=== PATIENT | female | born 1960 | race Asian ===

== ENCOUNTER 2017-12-11 09:40 | Emergency (ER) | payer MEDICAID, OTHER ==
[~2017-12-11] VITALS: Ht 162.6 cm; Wt 79.1 kg
[2017-12-11] MEDS ORDERED: PROPARACAINE/FLUORESCEIN SOD 0.5-0.25% 0.5 ML OPHTHALMIC SOLUTION OS ONE (11:00)
[2017-12-11 11:47] VITALS: BP 140/93
== END 2017-12-11 11:53 | disposition home or self-care (01) ==
LOC: EMS 09:41
DX: H57.12 Ocular pain, left eye (principal)
CPT/HCPCS: 99282; Z7610

== ENCOUNTER 2018-02-21 23:25 | Emergency (ER) | payer OTHER ==
[~2018-02-21] VITALS: Ht 162.6 cm; Wt 77.3 kg
[2018-02-21] MEDS ORDERED: 0.9% SODIUM CHLORIDE 5 ML NEB SOLUTION NEB ONE (23:55)
[2018-02-22] MEDS ORDERED: ALBUTEROL SULFATE 2.5 MG/0.5 ML NEB SOLUTION NEB ONE
[2018-02-22] MEDS ORDERED: IPRATROPIUM BROMIDE 0.5 MG/2.5 ML NEB SOLUTION NEB ONE
[2018-02-22 02:11] VITALS: BP 141/67
[2018-02-22] MEDS ORDERED: PredniSONE 20 MG TABLET PO ONE (03:00)
[2018-02-22] MEDS ORDERED: ACETAMINOPHEN 500 MG TABLET PO ONE (03:00)
[2018-02-22] MEDS ORDERED: ALBUTEROL SULFATE HFA 90 MCG/PUFF 8 GM INHALER IH ONE (03:00)
[2018-02-22] MEDS ORDERED: GuaiFENesin/D-METHORPHAN [SUGAR-FREE] 200-20MG/10 ML SYRUP UDCUP PO ONE (03:00)
== END 2018-02-22 03:23 | disposition home or self-care (01) ==
LOC: EMS 23:26
DX: J40 Bronchitis, not specified as acute or chronic (principal); J02.9 Acute pharyngitis, unspecified
CPT/HCPCS: 71045; 94640; 99284; J7512; J7613; J3535

== ENCOUNTER 2019-08-19 16:48 | Emergency (ER) | payer OTHER ==
[~2019-08-19] VITALS: Ht 162.6 cm; Wt 77.3 kg
[2019-08-19] MEDS ORDERED: KETOROLAC TROMETHAMINE 60 MG/2 ML VIAL IM ONE (18:30)
[2019-08-19 20:57] VITALS: BP 160/99
== END 2019-08-19 21:07 | disposition home or self-care (01) ==
LOC: EMS 16:49
DX: G50.0 Trigeminal neuralgia (principal); Z98.890 Other specified postprocedural states
CPT/HCPCS: 70450; 96372; 99284; J1885

== ENCOUNTER 2022-04-04 19:20 | Emergency (ER) | payer OTHER ==
[~2022-04-04] VITALS: Ht 162.6 cm; Wt 56.8 kg
[2022-04-04 19:39] VITALS: BP 130/79
[2022-04-04] MEDS ORDERED: METF-1211 PO (19:55)
[2022-04-04] MEDS ORDERED: ATOR20TA86 PO (19:55)
[2022-04-04] MEDS ORDERED: CARB200T6 PO (19:55)
[2022-04-04 19:56] LABS: GLUCOMETER DEV NAME(LOC) ERT.5; GLUCOSE,POINT OF CARE 117 MG/DL (70-110)
[2022-04-04 19:57] LABS: APPEARANCE,URINE HAZY (CLEAR); BILIRUBIN,URINE NEGATIVE (NEGATIVE); GLUCOSE, URINE (UA) NEGATIVE (NEGATIVE); KETONES,URINE NEGATIVE (NEGATIVE); LEUKOCYTE ESTERASE ,URINE LARGE (NEGATIVE); NITRATE,URINE NEGATIVE (NEGATIVE); OCCULT BLOOD,URINE LARGE (NEGATIVE); PH,URINE 6.5 (5.0-8.0); PROTEIN,URINE 30-70 mg/dL (NEGATIVE); SPECIFIC GRAVITIY, URINE 1.005 (1.003-1.030); UROBILINOGEN,URINE <=1.0 mg/dL (<=1.0)
[2022-04-04 20:11] LABS: BACTERIA,URINE Moderate /HPF (None Seen); RBC,URINE 26-50 /HPF (0-2); WBC,URINE >100 /HPF (0-5)
[2022-04-04 20:12] LABS: SQUAMOUS EPITHELIAL CELL,UR Rare /LPF (None Seen)
[2022-04-04] MEDS ORDERED: CEPH-558 PO (21:04)
[2022-04-04] MEDS ORDERED: PHEN-674 PO (21:04)
== END 2022-04-04 21:11 | disposition home or self-care (01) ==
LOC: EMS 19:20
DX: N39.0 Urinary tract infection, site not specified (principal); E11.9 Type 2 diabetes mellitus without complications; E78.00 Pure hypercholesterolemia, unspecified; I10 Essential (primary) hypertension; Z87.440 Personal history of urinary (tract) infections; Z98.890 Other specified postprocedural states; Z86.39 Personal history of other endocrine, nutritional and metabolic disease
CPT/HCPCS: 81001; 82962; 87086; 99283

== ENCOUNTER 2022-08-30 09:19 | Emergency (ER) | payer OTHER ==
[~2022-08-30] VITALS: Ht 162.6 cm; Wt 59.1 kg
[~2022-08-30 09:19] MED LIST: ATOR20TA86 PO; CARB200T6 PO; CEPH-558 PO; METF-1211 PO; PHEN-674 PO
[2022-08-30 12:05] VITALS: BP 144/88
[2022-08-30] MEDS ORDERED: LIDO700A15 TP (12:25)
[2022-08-30] MEDS ORDERED: ACYC-138 PO (12:25)
== END 2022-08-30 12:41 | disposition home or self-care (01) ==
LOC: EMS 09:27
DX: B02.9 Zoster without complications (principal); E11.9 Type 2 diabetes mellitus without complications; E78.00 Pure hypercholesterolemia, unspecified; I10 Essential (primary) hypertension; Z87.440 Personal history of urinary (tract) infections
CPT/HCPCS: 82962; 99283

== ENCOUNTER 2023-02-25 03:28 | Inpatient (IN) | payer OTHER ==
[~2023-02-25] VITALS: Ht 172.7 cm; Wt 61.2 kg
[~2023-02-25 03:28] MED LIST changes: +ACYC-138 PO; +ATOR20TA PO; -ATOR20TA86 PO; +CARB-92 PO; -CARB200T6 PO; -CEPH-558 PO; +LIDO700A15 TP; -PHEN-674 PO
[2023-02-25 04:30] LABS: BASOPHILS % (AUTO) 0.3 % (0.0-2.0); EOSINOPHILS % (AUTO) 0.9 % (1.0-6.0); HEMOGLOBIN 12.3 g/dL (12.0-16.0); LYMPHOCYTES # (AUTO) 1.6 K/uL (1.0-4.8); LYMPHOCYTES % (AUTO) 20.7 % (22.0-44.0); MEAN CORPUSCULAR HEMOGLOBIN 30.5 pg (26.0-34.0); MEAN CORPUSCULAR HGB CONC 34.1 G/dL (31.0-37.0); MEAN CORPUSCULAR VOLUME 90 fL (80-100); MONOCYTES # (AUTO) 0.6 K/uL (0.1-1.0); MONOCYTES % (AUTO) 7.4 % (2.0-9.0); NEUTROPHILS # (AUTO) 5.6 K/uL (1.8-7.7); NEUTROPHILS % (AUTO) 70.7 % (40.0-70.0); PLATELET COUNT (AUTO) 291 K/uL (150-450); RED BLOOD CELL COUNT(AUTO) 4.02 MIL/uL (4.00-5.20); RED CELL DISTRIBUTION WIDTH 13.3 % (11.5-14.5)
[2023-02-25 04:40] LABS: ANION GAP 13 mmol/L (8-16); CARBON DIOXIDE 28 mmol/L (22-29); CHLORIDE 93 mmol/L (98-107); CREATININE 0.72 mg/dL (0.60-1.30); GLOMERULAR FILTR. RATE CALC > 60 mL/min (>60); GLUCOSE,RANDOM 119 mg/dL (70-110); POTASSIUM 3.4 mmol/L (3.5-5.1); SODIUM SERUM 134 mmol/L (136-145)
[2023-02-25] MEDS ORDERED: SODIUM CHLORIDE 0.9% 1,000 ML IV ONE (04:45)
[2023-02-25 04:51] LABS: ALANINE AMINOTRANSFERASE 12 U/L (12-78); ALBUMIN 3.5 g/dL (3.4-5.0); ALKALINE PHOSPHATASE 85 U/L (46-116); ASPARTATE AMINOTRANSFERASE 15 U/L (15-37); BILIRUBIN,TOTAL 0.3 mg/dL (0.1-1.0); CREATINE KINASE, TOTAL ONLY 34 U/L (26-192); TOTAL PROTEIN, SERUM 7.2 g/dL (6.4-8.2)
[2023-02-25 06:23] LABS: APPEARANCE,URINE HAZY (CLEAR); BILIRUBIN,URINE NEGATIVE (NEGATIVE); GLUCOSE, URINE (UA) NEGATIVE (NEGATIVE); LEUKOCYTE ESTERASE ,URINE TRACE (NEGATIVE); NITRATE,URINE NEGATIVE (NEGATIVE); OCCULT BLOOD,URINE LARGE (NEGATIVE); PH,URINE 7.5 (5.0-8.0); PROTEIN,URINE TRACE mg/dL (NEGATIVE); SPECIFIC GRAVITIY, URINE 1.006 (1.003-1.030); UROBILINOGEN,URINE <=1.0 mg/dL (<=1.0)
[2023-02-25 06:46] LABS: RBC,URINE >100 /HPF (0-2)
[2023-02-25 06:47] LABS: BACTERIA,URINE None Seen /HPF (None Seen); WBC,URINE None Seen /HPF (0-5)
[2023-02-25] MEDS ORDERED: IOHEXOL 350 MG/ML 100 ML VIAL ONE (07:26)
[2023-02-25] MEDS ORDERED: SODIUM CHLORIDE 0.9% 100 ML ONE (07:26)
[2023-02-25] MEDS ORDERED: GADOTERATE MEGLUMINE 10 MMOL/20 ML VIAL IVP ONE (11:06)
[2023-02-25 14:27] VITALS: BP 119/75; PULSE 74; RESP 16; TEMP 98.6
[2023-02-25 20:16] VITALS: BP 120/72; PULSE 63; RESP 16; TEMP 99
[2023-02-25] MEDS ORDERED: IPRATROPIUM BROMIDE 0.5 MG/2.5 ML NEB SOLUTION NEB PRN (22:15)
[2023-02-25] MEDS ORDERED: ONDANSETRON HCL 4 MG/2 ML VIAL IVP PRN (22:15)
[2023-02-25] MEDS ORDERED: BISACODYL 10 MG RECTAL RECTAL SUPPOSITORY PR PRN (22:15)
[2023-02-25] MEDS ORDERED: MAGNESIUM HYDROXIDE SUSPENSION 30 ML UDCUP PO PRN (22:15)
[2023-02-25] MEDS ORDERED: MORPHINE SULFATE 2 MG/ML SYRINGE IVP PRN (22:15)
[2023-02-25] MEDS ORDERED: ACETAMINOPHEN 325 MG TABLET PO PRN (22:15)
[2023-02-25] MEDS ORDERED: HYDROCODONE/ACETAMINOPHEN 5-325 MG TABLET PO PRN (22:15)
[2023-02-25] MEDS ORDERED: ZOLPIDEM TARTRATE 5 MG TABLET PO PRN (22:15)
[2023-02-25] MEDS ORDERED: ALBUTEROL SULFATE 2.5 MG/0.5 ML NEB SOLUTION NEB PRN (22:15)
[2023-02-25 22:53] LABS: THYROID STIMULATING HORMONE 5.35 uIU/mL (0.36-3.74)
[2023-02-25] MEDS: HEPARIN SODIUM,PORCINE 5,000 UNITS/ML VIAL SQ SCH (23:32)
[2023-02-26 00:20] VITALS: BP 138/75; PULSE 66; RESP 16; TEMP 97.9
[2023-02-26 05:25] VITALS: BP 102/68; PULSE 73; RESP 16; TEMP 98.2
[2023-02-26 07:48] VITALS: BP 99/65; PULSE 66; RESP 16; TEMP 98.9
[2023-02-26] MEDS: HEPARIN SODIUM,PORCINE 5,000 UNITS/ML VIAL SQ SCH (08:00)
[2023-02-26] MEDS ORDERED: CarBAMazepine 200 MG TABLET PO SCH ×2 (09:00→21:00)
[2023-02-26] MEDS ORDERED: ATORVASTATIN CALCIUM 20 MG TABLET PO SCH (09:00)
[2023-02-26] MEDS ORDERED: PANTOPRAZOLE SODIUM 40 MG DR TABLET PO SCH (09:00)
[2023-02-26] MEDS ORDERED: CarBAMazepine 200 MG ER TABLET PO SCH (09:15)
[2023-02-26 11:05] LABS: BASOPHILS % (AUTO) 0.9 % (0.0-2.0); EOSINOPHILS % (AUTO) 0.9 % (1.0-6.0); HEMATOCRIT 36.5 % (36-46); HEMOGLOBIN 12.4 g/dL (12.0-16.0); LYMPHOCYTES # (AUTO) 1.8 K/uL (1.0-4.8); MEAN CORPUSCULAR HEMOGLOBIN 30.6 pg (26.0-34.0); MEAN CORPUSCULAR HGB CONC 33.9 G/dL (31.0-37.0); MEAN CORPUSCULAR VOLUME 90 fL (80-100); MONOCYTES # (AUTO) 0.5 K/uL (0.1-1.0); MONOCYTES % (AUTO) 6.8 % (2.0-9.0); NEUTROPHILS # (AUTO) 4.9 K/uL (1.8-7.7); NEUTROPHILS % (AUTO) 66.4 % (40.0-70.0); PLATELET COUNT (AUTO) 313 K/uL (150-450); RED BLOOD CELL COUNT(AUTO) 4.05 MIL/uL (4.00-5.20); RED CELL DISTRIBUTION WIDTH 13.9 % (11.5-14.5)
[2023-02-26 11:21] LABS: ANION GAP 11 mmol/L (8-16); CALCIUM, TOTAL 8.3 mg/dL (8.8-10.5); CARBON DIOXIDE 29 mmol/L (22-29); CHLORIDE 99 mmol/L (98-107); CREATININE 0.67 mg/dL (0.60-1.30); GLOMERULAR FILTR. RATE CALC > 60 mL/min (>60); GLUCOSE,RANDOM 110 mg/dL (70-110); POTASSIUM 4.3 mmol/L (3.5-5.1); SODIUM SERUM 139 mmol/L (136-145)
[2023-02-26 11:33] LABS: ALANINE AMINOTRANSFERASE 10 U/L (12-78); ALBUMIN 3.6 g/dL (3.4-5.0); ALKALINE PHOSPHATASE 87 U/L (46-116); ASPARTATE AMINOTRANSFERASE 14 U/L (15-37); BILIRUBIN,TOTAL 0.2 mg/dL (0.1-1.0); TOTAL PROTEIN, SERUM 7.4 g/dL (6.4-8.2)
[2023-02-26 11:36] VITALS: BP 122/61; PULSE 66; RESP 16; TEMP 97.9
[2023-02-26] MEDS ORDERED: ASPI81TA87 PO (11:48)
== END 2023-02-26 14:25 | disposition home or self-care (01) | DRG 347 ==
LOC: EMS 03:30 → 5N 12:42
PROVIDERS: ADMIT Hospitalist; ATTEND Hospitalist
DX: M48.02 Spinal stenosis, cervical region (principal); G82.50 Quadriplegia, unspecified; E87.1 Hypo-osmolality and hyponatremia; E87.6 Hypokalemia; E78.00 Pure hypercholesterolemia, unspecified; E11.9 Type 2 diabetes mellitus without complications; G51.0 Bell's palsy; G50.0 Trigeminal neuralgia; M50.322 Other cervical disc degeneration at C5-C6 level; R55 Syncope and collapse; N95.0 Postmenopausal bleeding; I10 Essential (primary) hypertension; E03.9 Hypothyroidism, unspecified; Z87.440 Personal history of urinary (tract) infections; Z79.899 Other long term (current) drug therapy
CPT/HCPCS: 70450; 70496; 70498; 70553; 71045; 72156; 76856; 80053; 81001; 82550; 83880; 84439; 84443; 84484; 85025; 92610; 93005; 93306; 97163; 99291; J1644; J7050; Q9967; 36415-L1; 36415-TC